=== PATIENT | male | born 1975 | race Caucasian/White ===

== ENCOUNTER 2020-11-23 01:20 | Emergency (ER) | payer OTHER ==
[~2020-11-23] VITALS: Ht 177.8 cm; Wt 63.0 kg
[2020-11-23] MEDS ORDERED: ACETAMINOPHEN 325MG TABLET PO ONE (02:30)
[2020-11-23] MEDS ORDERED: LIDOCAINE HCL/EPINEPHRINE 1%-EPI 1:100,000 10 ML VIAL IJ ONE (03:00)
[2020-11-23] MEDS ORDERED: TETANUS, DIPHTHERIA, PERTUSSIS VAC/PF 0.5ML (>7YR OLD) IM ONE (03:00)
[2020-11-23] MEDS ORDERED: BACITRACIN ZINC OINT UDPKT TOP ONE (03:00)
[2020-11-23] MEDS ORDERED: LIDOCAINE HCL/EPINEPHRINE 1%-EPI 1:100,000 20 ML VIAL INFIL ONE (04:15)
[2020-11-23 04:27] VITALS: BP 138/88
== END 2020-11-23 04:28 ==
LOC: ER 01:20
DX: S61.210A Laceration without foreign body of right index finger without damage to nail, initial encounter (principal); V43.52XA Car driver injured in collision with other type car in traffic accident, initial encounter; X99.9XXA Assault by unspecified sharp object, initial encounter; Y93.89 Activity, other specified; Y92.488 Other paved roadways as the place of occurrence of the external cause
CPT/HCPCS: 12001; 73130; 90471; 90715; 99283; Z7610; J3490

== ENCOUNTER 2020-12-01 11:39 | Emergency (ER) | payer MEDICAID, OTHER ==
[~2020-12-01] VITALS: Ht 152.4 cm; Wt 61.0 kg
[2020-12-01 12:10] VITALS: BP 151/97
== END 2020-12-01 13:39 | disposition home or self-care (01) ==
LOC: ER 11:39
DX: S61.310D Laceration without foreign body of right index finger with damage to nail, subsequent encounter (principal); Z48.02 Encounter for removal of sutures; X58.XXXD Exposure to other specified factors, subsequent encounter
CPT/HCPCS: 99281